=== PATIENT | female | born 1990 | race Two or more races ===

== ENCOUNTER 2019-03-13 09:16 | Emergency (ER) | payer SELFPAY ==
[~2019-03-13] VITALS: Ht 152.4 cm; Wt 59.0 kg
[2019-03-13 09:47] VITALS: BP 118/70
[2019-03-13 10:00] LABS: BASOPHILS % (AUTO) 1.7 % (0.0-2.0); EOSINOPHILS % (AUTO) 1.8 % (0.0-3.0); HEMATOCRIT 42.2 % (37.0-47.0); HEMOGLOBIN 13.8 G/DL (12.0-16.0); LYMPHOCYTES % (AUTO) 39.2 % (20.0-45.0); MEAN CORPUSCULAR VOLUME 88 FL (80-99); MONOCYTES % (AUTO) 8.2 % (1.0-10.0); NEUTROPHILS % (AUTO) 49.1 % (45.0-75.0); PLATELET COUNT 308 K/UL (150-450); RED BLOOD COUNT 4.77 M/UL (4.20-5.40); RED CELL DISTRIBUTION WIDTH 12.3 % (11.6-14.8)
--- NOTE | 2019-03-13 10:08 | Emergency Room Report ---
History of Present Illness General Chief Complaint: Syncope Source: Patient Present Illness HPI 28-year-old female with no major medical problems presents with 2 episodes of feeling palpitations and lightheaded like she was close to passing out, but she reports she never passed out. She denies any recent travel, cough, hemoptysis, chest pain, shortness of breath, headache, blurred vision, numbness, tingling, weakness, leg swelling, leg pain, abdominal pain, vomiting, any symptoms at all. She reports both episodes Lasix and the one today, were transient, the first one lasted roughly 10 minutes , today only a few minutes, less than 5, and so she decided to come in. Allergies: Coded Allergies: No Known Allergies (Unverified , 03/13/19) Patient History Past Medical History: see triage record Last Menstrual Period: 03/05/19 Reviewed Nursing Documentation: PMH: Agreed; PSxH: Agreed Nursing Documentation-PM Past Medical History: No Stated History Review of Systems All Other Systems: negative except mentioned in HPI Physical Exam Vital Signs Date Time Temp Pulse Resp B/P (MAP) Pulse Ox O2 Delivery O2 Flow Rate FiO2 03/13/19 09:19 97.5 73 20 124/80 99 Room Air Sp02 EP Interpretation: reviewed, normal General Appearance: no apparent distress, alert, non-toxic Head: normocephalic Eyes: bilateral eye normal inspection, bilateral eye PERRL, bilateral eye EOMI ENT: normal ENT inspection, hearing grossly normal, normal pharynx, no angioedema, normal voice, moist mucus membranes Neck: normal inspection, full range of motion, supple, thyroid normal, supple/ symm/no masses Respiratory: chest non-tender, lungs clear, normal breath sounds, chest symmetrical, palpation of chest normal Cardiovascular #1: normal peripheral pulses, regular rate, rhythm Cardiovascular #2: 2+ radial (R), 2+ radial (L) Gastrointestinal: normal inspection, non tender, soft, no mass, no guarding, no rebound Rectal: deferred Genitourinary: normal inspection, no CVA tenderness Musculoskeletal: back normal, gait/station normal, normal range of motion, non- tender, no calf tenderness, Charmaine's Sign negative Neurologic: alert, responsive, accounting auditor III-XII nml as tested, motor strength/tone normal, sensory intact, speech normal Psychiatric: judgement/insight normal, memory normal, mood/affect normal, anxious Skin: normal color, no rash, warm/dry, normal turgor Lymphatic: no adenopathy Medical Decision Making Diagnostic Impression: Primary Impression: Palpitations ER Course Patient is PERC rule negative, normal thyroid exam, no symptoms of thyroid dz other than the 2 episodes of palpititations, no syncope, no h/o OCP use, no recent travel, well-appearing, will dc with reassurance given normal exam, cbc, chem panel, ekg. Recommend PMD f/u for holter event monitoring as outpt. Patient asymptomatic currently, and admits to sleep deprivation and drinking lots of coffee, but no diet pills or other energy supplements/drinks. Will recommend reduction of caffeine intake and increasing sleep. EKG Diagnostic Results EKG Time: 09:43 EP Interpretation: no stemi, no brugado, normal qtc 407, no [id number] Rate: normal Rhythm: NSR ST Segments: no acute changes ASA given to the pt in ED: No Rhythm Strip Diag. Results Rhythm Strip Time: 10:03 EP Interpretation: yes Rate: 67 Rhythm: NSR, no PVC's, no ectopy Last Vital Signs Date Time Temp Pulse Resp B/P (MAP) Pulse Ox O2 Delivery O2 Flow Rate FiO2 03/13/19 09:47 97.5 72 19 118/70 99 Room Air Disposition: HOME, SELF-CARE Condition: Stable Scripts No Active Prescriptions or Reported Meds Referrals: NOT CHOSEN IPA/,REFERRING (PCP) ANA FAIRCHILD M.D Mar 13, 2019 10:08
[2019-03-13 10:11] LABS: ANION GAP 8 mmol/L (5-15); BLOOD UREA NITROGEN 13 mg/dL (7-18); CALCIUM 9.4 MG/DL (8.5-10.1); CARBON DIOXIDE 29 MMOL/L (21-32); CHLORIDE 102 MMOL/L (98-107); CREATININE 0.7 MG/DL (0.55-1.30); POTASSIUM 3.4 MMOL/L (3.5-5.1); SODIUM 139 MMOL/L (136-145)
[2019-03-13 10:22] LABS: ALANINE AMINOTRANSFERASE 28 U/L (12-78); ALBUMIN 4.4 G/DL (3.4-5.0); ALBUMIN/GLOBULIN RATIO 1.1 (1.0-2.7); ALKALINE PHOSPHATASE 52 U/L (46-116); ASPARTATE AMINO TRANSFERASE 19 U/L (15-37); BILIRUBIN,TOTAL 1.2 MG/DL (0.2-1.0)
[2019-03-13 10:23] LABS: BILIRUBIN,DIRECT 0.2 MG/DL (0.0-0.3)
[2019-03-13 11:09] VITALS: BP 113/74
--- NOTE | 2019-03-14 21:58 | Cardiology Report ---
APPROVED REPORT EKG Measurement Heart [id number] Normal sinus rhythm Normal ECG
== END 2019-03-13 11:09 | disposition home or self-care (01) ==
LOC: EMR 09:46
DX: R00.2 Palpitations (principal); R42 Dizziness and giddiness
CPT/HCPCS: 36415; 80053; 82248; 84484; 85025; 93005; 99283